=== PATIENT | male | born 1985 | race Caucasian/White ===

== ENCOUNTER 2020-01-17 23:47 | Emergency (ER) | payer SELFPAY ==
[~2020-01-17] VITALS: Ht 190.5 cm; Wt 90.7 kg
[2020-01-17 23:48] VITALS: Ht 190.5 cm; Wt 90.7 kg
[2020-01-18 00:46] LABS: CALCIUM 10.1 mg/dL (8.5-10.1); CARBON DIOXIDE 22.8 mmol/L (21-32); CHLORIDE SERUM 103 mmol/L (98-107); CREATININE SERUM 1.3 mg/dL (0.7-1.3); GFR1 > 60 mL/min; GLUCOSE SERUM 112 mg/dL (74-106); POTASSIUM SERUM 3.4 mmol/L (3.5-5.1); SODIUM SERUM 141 mmol/L (136-145)
[2020-01-18 00:49] LABS: BASOPHIL % 0.4 % (0-2); PLATELET COUNT 212 x10^3mcL (130-400)
[2020-01-18 00:51] LABS: ALBUMIN 4.7 g/dL (3.4-5.0); ALKALINE PHOSPHATASE 70 U/L (46-116); ALT/SGPT 27 U/L (16-63); AST/SGOT 16 U/L (15-37); BILIRUBIN TOTAL 0.99 mg/dL (0.20-1.00); TOTAL PROTEIN, SERUM 7.7 g/dL (6.4-8.2)
[2020-01-18 02:08] LABS: microscopic required? NO
[2020-01-18 02:14] LABS: UA SPECIFIC GRAVITY <=1.005 (1.005-1.035); urine erythrocyte NEGATIVE (NEGATIVE)
[2020-01-18 02:22] LABS: AMPHETAMINE QUAL UR NONE DETECTED (See below)
[2020-01-18 02:30] VITALS: BP 124/82
== END 2020-01-18 02:43 | disposition home or self-care (01) ==
LOC: ED 23:47
PROVIDERS: Student in an Organized Health Care Education/Training Program
DX: F41.9 Anxiety disorder, unspecified (principal); F17.210 Nicotine dependence, cigarettes, uncomplicated; R06.02 Shortness of breath; R10.9 Unspecified abdominal pain
CPT/HCPCS: 83880; 99406; J2060; Q0092